=== PATIENT | female | born 1950 | race Caucasian/White ===

== ENCOUNTER → 2016-11-18 | Outpatient (CLI) | payer OTHER ==
[2016-04-07 11:00] VITALS: BP 124/68
[~2016-11-18] MED LIST: CHOL10002 PO; FENT1PAT15 TP; FUROSEMIDE 40 MG/4 ML VIAL. IVP ONE; OXYC5TAB PO; SENN-22 PO
--- NOTE | 2016-11-18 16:00 | RAD ---
Radionuclide renal scan, 11/18/2016: History: Right flank pain Imaging of the kidneys was performed following IV injection of 10 mCi of technetium 99m MAG3. Approximately 15 minutes into the exam the patient was also injected with 40 mg of Lasix IV, and additional imaging performed. The dynamic flow study demonstrates prompt symmetrical perfusion of the kidneys. There is prompt uptake of the radionuclide by both kidneys. There is initially some stasis of activity in the renal pelves, more so on the right, however, the activity largely clears following the Lasix administration. On the final images there is a small amount of residual activity in the lower pole collecting system of the right kidney and the proximal right ureter. No significant parenchymal retention is evident on either side. Normal bladder activity is evident. IMPRESSION: 1. Prompt uptake and excretion of the radionuclide by both kidneys. 2. Only minimal retention of activity in the right lower pole collecting system. There is no evidence of high-grade obstruction.
== END | disposition home or self-care (01) ==
LOC: NM 09:56
PROVIDERS: ATTEND Urology
DX: R10.9 Unspecified abdominal pain (principal)
CPT/HCPCS: 78708; 96374; 96375; A9562; J1940